=== PATIENT | male | born 1965 | race Caucasian/White ===

== ENCOUNTER 2023-03-24 12:04 | Emergency (ER) | payer SELFPAY ==
[~2023-03-24 12:04] MED LIST: CEPH500C PO; INSASP10V SC; INSU100I5 SQ; METF-380 PO; METH4TAB PO; NAPR-243 PO; OXYC10TA8; SULF1TAB38 PO; TRM50T PO
--- NOTE | 2023-03-24 12:24 | ED Neck-Back Pain/Injury ---
General Chief Complaint: Head/Cervical Problems Stated Complaint: NECK PAIN/NUMBNESS LEFT ARM Nursing Triage Note: PT AMB TO RM 3 PT CO OF NECK PAIN STARTED YESTERDAY 05/08. PT STATES HAS NUMBNESS IN L ARM AND HAND FOR APPROX 3 MONTHS. DENIES CHEST PAIN AT THIS X. Source of Information: Patient Exam Limitations: No Limitations History of Present Illness Date Seen by Provider: Mar 24, 2023 Time Seen by Provider: 12:18 Initial Comments Patient is a 58-year-old male who presents ED with neck pain. Patient states he fell 3 to 4 months ago on the asphalt. Injured his neck. Patient states he was not evaluated or seen. Since then he has been having pain in the neck but this became worse yesterday. Reports some numbness and tingling into the left arm as well as his right upper extremity. This appears to be positional. He gets the pain with any certain movement of his neck. Denies of any headache, dizziness, visual changes, unilateral muscle weakness, chest pain, cough or shortness of breath. Was evaluated at [facility] was sent to the ED for further evaluation concern for cardiac. Denies of any known cardiac history. Patient was found to be tachycardic. 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 Patient denies taking anything for pain. Denies of any recent travels or surgeries, leg pain, Kael pain vomiting, diarrhea. Allergies and Home Medications Allergies Coded Allergies: No Known Drug Allergies (Unverified , 10/15/10) Patient Home Medication List Home Medication List Reviewed: Yes Cyclobenzaprine HCl (Cyclobenzaprine HCl) 10 Mg Tablet, 10 MG PO TID Prescribed by: HAWA RAMIREZ on 03/24/23 1334 Insulin Aspart (Novolog Vial) 10 Unit/0.1 Ml Susp, 30 UNIT SC TIDWM, (Reported) Entered as Reported by: STERLING MELENDEZ on 10/20/10 1020 Insulin Determir (Levemir) 100 Unit/1 Ml Insuln.pen, 65 UNIT SQ HS, (Reported) Entered as Reported by: STERLING MELENDEZ on 10/20/10 1020 Methylprednisolone (Medrol Dose Pack) 4 Mg/Dose-Pack Tab.ds.pk, 0 PO UD Prescribed by: TYREL MOORE on 11/19/10 1745 Methylprednisolone (Medrol Dose pack) 4 Mg Tab, 4 MG PO UD Prescribed by: HAWA RAMIREZ on 03/24/23 1335 Naproxen (Naprosyn) 500 Mg Tablet, 1 EACH PO TID PRN Prescribed by: TYREL MOORE on 07/29/112302 Naproxen (Naproxen) 500 Mg Tablet, 500 MG PO Q12H Prescribed by: HAWA RAMIREZ on 03/24/23 133 Tramadol Hcl (Ultram) 50 Mg Tab, 50 MG PO Q4-6HOURS PRN Prescribed by: TYREL MOORE on 11/19/101746 Tramadol Hcl (Ultram) 50 Mg Tab, 50 MG PO Q4-6HOURS PRN Prescribed by: TYREL MOORE on 07/29/112302 Trimethoprim/Sulfamethoxazole (Bactrim Ds) 1 Ea Tablet, 1 EA PO BID Prescribed by: TYREL MOORE on 11/19/101744 Trimethoprim/Sulfamethoxazole (Bactrim Ds) 1 Ea Tablet, 1 EA PO BID Prescribed by: TYREL MOORE on 07/29/112302 Review of Systems Constitutional: No chills, No diaphoresis EENTM: other (Neck pain); No ear pain, No blurred vision, No double vision Respiratory: No cough Cardiovascular: No chest pain Gastrointestinal: No abdominal pain, No diarrhea, No nausea, No vomiting Genitourinary: No decreased output, No discharge Musculoskeletal: No back pain, No joint pain; muscle pain, muscle stiffness Skin: No change in color Psychiatric/Neurological: Denies Anxiety, Denies Depressed All Other Systems Reviewed Negative Unless Noted: Yes Past Tfulirj-Wyscxj-Ywaowd Hx Past Medical History Reproductive Disorders: No Physical Exam Vital Signs Vital Signs - First Documented 03/24/23 12:10 Pulse 125 Resp 16 B/P (MAP) 113/80 (91) Pulse Ox 100 Capillary Refill : Height, Weight, BMI Height: '" Weight: lbs. oz. kg; BMI Method:Stated General Appearance: No Apparent Distress, WD/WN HEENT: PERRL/EOMI, TMs Normal, Normal ENT Inspection, Pharynx Normal Neck: Other (Left-sided cervical paraspinal muscle tenderness. Positive Spurling sign. 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 No ataxia. Pain with active range of motion of the left shoulder. ) Neurologic/Psychiatric: Alert, Oriented x3, No Motor/Sensory Deficits, Normal Mood/Affect, produce service team member II-XII Norm as Tested Skin: Normal Color, Warm/Dry Progress/Results/Core Measures Results/Orders My Orders Orders - RODDY DALTON Ct Cervical Spine Wo (03/24/23 12:16) Ketorolac Injection (Ketorolac Injection (03/24/23 12:30) Orphenadrine Inj (Ed Only) (Orphenadrine (03/24/23 12:30) Medications Given in ED Current Medications Medications Dose Ordered Sig/Mikhail Route Start Time Stop Time Status Last Admin Dose Admin Ketorolac Tromethamine 30 mg ONCE ONCE IM 03/24/23 12:30 03/24/23 12:31 DC 03/24/23 12:25 30 MG Orphenadrine Citrate 60 mg ONCE ONCE IM 03/24/23 12:30 03/24/23 12:31 DC 03/24/23 12:25 60 MG Vital Signs/I&O 03/24/23 12:10 Pulse 125 Resp 16 B/P (MAP) 113/80 (91) Pulse Ox 100 Blood Pressure Mean: 91 Departure Communication (PCP) Patient is complaining of left-sided neck pain for about the past 3 to 4 months. Pain became worse yesterday with continued numbness and tingling in the left and right upper extremity. Worse to his left arm. On exam normal active range of motion of his upper extremities. Seems to be worse with overhead movement of his left arm. 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 Equal pulses bilateral upper extremity. Pain is positional with any type of movement of his cervical neck. Tenderness to palpate left cervical paraspinal muscle. Positive Spurling sign. No chest pain, shortness of breath. No known cardiac history. No evidence of bruit. States he fell about 4 months ago that seem to be the start of the pain. There is no evidence of muscle paralysis. There is no evidence of strokelike symptoms. Due to the fall and continued pain CT scan of the cervical spine was ordered. Patient did receive Toradol and Norflex with improvement of pain. CT scan of the cervical spine showed Hypertrophic degenerative bony changes result in substantial degrees of chronic multilevel canal and foraminal stenosis without fracture, bony destruction or malalignment. Patient pain is positional. Does have cervical paraspinal muscle tenderness and midline tenderness suggesting a source of the pain. Clinically does not appear cardiac or stroke. Discussed these results with patient. Would likely benefit with outpatient MRI. Pain management. Physical therapy. neurosurgery outpatient follow-up. If any worsening symptoms such as loss of motor function unilateral weakness to return back to ED. Will discharge with anti-inflammatories, muscle relaxers and Medrol Dosepak. Patient was tachycardic. Reports meth use 2 days ago. Improvement of his heart rate after pain control Impression Primary Impression: Neck pain Disposition: HOME, SELF-CARE Condition: Stable Departure-Patient Inst. Decision time for Depature: 13:33 Referrals: [facility] [place] Primary Care Physician Patient Instructions: Cervical Muscle Strain (DC), Radiculopathy (DC) Add. Discharge Instructions: Recommend follow-up your primary care physician for further evaluation. Provided something to help with pain and muscle spasming. If any worsening symptoms such as loss of motor function to return back to ED for further evaluation. All discharge instructions reviewed with patient and/or family. Voiced understanding. Scripts Methylprednisolone (Medrol Dose pack) 4 Mg Tab 4 MG PO UD for 6 Days, #21 TAB as directed per dose pack Prov: RODDY DALTON 03/24/23 Cyclobenzaprine HCl (Cyclobenzaprine HCl) 10 Mg Tablet 10 MG PO TID for Muscle Spasms, #16 TAB Prov: RODDY DALTON 03/24/23 Naproxen (Naproxen) 500 Mg Tablet 500 MG PO Q12H, #14 TAB Prov: RODDY DALTON 03/24/23 RODDY DALTON Mar 24, 2023 12:24
[2023-03-24] MEDS ORDERED: ORPHENADRINE 60 MG/2 ML AMP (ED ONLY) IM ONE (12:30)
[2023-03-24] MEDS ORDERED: KETOROLAC INJ 30 MG/ML VIAL IM ONE (12:30)
--- NOTE | 2023-03-24 13:02 | Diagnostic Imaging Report ---
PROCEDURE: CT cervical spine without contrast. TECHNIQUE: Multiple contiguous axial images were obtained through the cervical spine without the use of intravenous contrast. Sagittal and coronal reformations were then performed. Auto Exposure Controls were utilized during the CT exam to meet ALARA standards for radiation dose reduction. INDICATION: Onset of neck pain yesterday, severe, complaining of numbness in the left arm and hand, no known discrete injury. No priors for comparison. FINDINGS: Cervical statures are normal, the alignment is unremarkable. There is advanced degenerative disc endplate, facet and uncovertebral joint disease throughout the cervical spine but greatest at the mid to lower levels. There is carotid atherosclerotic vascular calcifications. No deformity to the hyoid or tracheal cartilage. No paravertebral mass, hemorrhage or fluid collection. At C3-C4, there is mild canal and mild biforaminal stenosis. At C4-C5, there is moderate canal with moderate right and mild left foraminal stenosis. At C5-C6 there is severe spinal canal stenosis with moderate biforaminal narrowing at C6-C7. There is moderate severity of spinal canal stenosis with moderate biforaminal narrowing. At C7-T1 there is severe canal and severe biforaminal stenosis. IMPRESSION: Hypertrophic degenerative bony changes result in substantial degrees of chronic multilevel canal and foraminal stenosis without fracture, bony destruction or malalignment. No acute-appearing abnormality. Dictated by: Dictated on workstation # [id number]
[2023-03-24] MEDS ORDERED: NAPR-915 PO (13:34)
[2023-03-24] MEDS ORDERED: CYCL10TA25 PO (13:34)
[2023-03-24] MEDS ORDERED: NF-METHYLP PO (13:35)
[2023-03-24 13:41] VITALS: BP 110/71
== END 2023-03-24 13:41 | disposition home or self-care (01) ==
LOC: EDUNIT# 12:04 → ER 12:07
DX: M54.2 Cervicalgia (principal)
CPT/HCPCS: 72125